=== PATIENT | male | born 1990 | race Caucasian/White ===

== ENCOUNTER 2017-04-17 20:33 | Emergency (ER) | payer SELFPAY ==
[~2017-04-17] VITALS: Ht 160 cm; Wt 62.1 kg
[2017-04-17 20:44] VITALS: Ht 160 cm; Wt 62.1 kg
[2017-04-18 01:28] VITALS: BP 113/54
== END 2017-04-18 01:28 | disposition home or self-care (01) ==
LOC: ED 20:33
DX: S46.912A Strain of unspecified muscle, fascia and tendon at shoulder and upper arm level, left arm, initial encounter (principal); X58.XXXA Exposure to other specified factors, initial encounter; Y93.89 Activity, other specified; Y92.89 Other specified places as the place of occurrence of the external cause; Y99.8 Other external cause status; M94.0 Chondrocostal junction syndrome [Tietze]

== ENCOUNTER 2018-03-18 19:05 | Emergency (ER) | payer SELFPAY ==
[~2018-03-18] VITALS: Ht 157.5 cm; Wt 65.8 kg
[2018-03-18 19:11] VITALS: Ht 157.5 cm; Wt 65.8 kg
[2018-03-18 21:50] LABS: AMPHETAMINE QUAL UR NONE DETECTED (See below)
[2018-03-18 21:52] VITALS: BP 124/70
== END 2018-03-18 21:52 | disposition home or self-care (01) ==
LOC: ED 19:05
PROVIDERS: Emergency Medicine
DX: R07.89 Other chest pain (principal); M79.602 Pain in left arm
CPT/HCPCS: J1885; Q0092

== ENCOUNTER 2019-05-01 10:51 | Emergency (ER) | payer MEDICAID ==
[~2019-05-01] VITALS: Ht 157.5 cm; Wt 63.5 kg
[2019-05-01 10:55] VITALS: BP 134/79; Ht 157.5 cm; Wt 63.5 kg
== END 2019-05-01 11:38 | disposition home or self-care (01) ==
LOC: ED 10:51
DX: J02.9 Acute pharyngitis, unspecified (principal)